=== PATIENT | male | born 1975 ===

== ENCOUNTER 2018-07-06 09:37 | Outpatient (RCR) | payer MEDICARE ==
[~2018-07-06 09:37] MED LIST: CETI10CA8 PO; CITA-145 PO; DIPH-740 PO; IBUP600T22 PO; OMEP40CA48 PO; TRAM-420 PO; ZOLP-350 PO
== END 2018-10-04 ==
LOC: SPU 09:37
PROVIDERS: ATTEND Nurse Practitioner Family
DX: Z13.220 Encounter for screening for lipoid disorders (principal); C79.51 Secondary malignant neoplasm of bone; E55.9 Vitamin D deficiency, unspecified; E03.9 Hypothyroidism, unspecified
CPT/HCPCS: 82306; 82465; 83718; 84443; 84478

== ENCOUNTER 2018-07-06 10:00 | Outpatient (RCR) | payer MEDICARE ==
[2018-04-09 09:13] VITALS: BP 131/88
[2018-04-09 09:55] LABS: PLATELET COUNT, AUTOMATED 316 K/uL (150-450)
--- NOTE | 2018-04-09 11:32 | ONCOLOGY CONSULTATION ---
EVENT DATE: April 09, 2018 REASON FOR CONSULTATION Establishment of care for a patient with metastatic carcinoid tumor. 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 His oncology history dated back to 1987 at the age of 12, when he was diagnosed with carcinoid tumor of his right lung. He underwent right pneumonectomy and subsequently developed metastatic disease involving his liver and bones. In 1995, he was treated with 5-FU and streptozocin but he did not have much of a response to the chemotherapy and apparently did not tolerate it well. He had metastasis to the right and left orbits and he received 4000 cGy of radiation therapy in 1999. In 2007, he had surgical resection of metastasis in the suprasellar region of the brain. He had also surgical removal of multiple painful subcutaneous nodules involving his back and face. In December 2011, he began monthly injections of Sandostatin LAR. Since starting the Sandostatin LAR, his chromogranin A levels decreased from the range of 250 down to the 20-50 range and his symptoms of carcinoid syndrome including diarrhea and flushing also improved. Patient moved to [place], [place] a few weeks ago and he would like to establish care. PAST MEDICAL HISTORY Metastatic carcinoid tumor diagnosed in 1987 at age of 12 years. PAST SURGICAL HISTORY Surgical resection of tumors from the lung. He had the pneumonectomy in 1987 and also from subcutaneous tissues and from the suprasellar region of the brain in 2007. FAMILY HISTORY Negative for cancer or blood diseases. SOCIAL HISTORY Patient is with four children. CURRENT MEDICATION 1. Sandostatin LAR every month. 2. Benadryl 25 mg p.r.n. 3. Ibuprofen 600 mg as needed. 4. Tramadol 50 mg as needed. 5. Ambien 10 mg at bedtime. 6. Omeprazole 40 mg daily. 7. Citalopram 20 mg daily. 8. Cetirizine 10 mg daily. ALLERGIES AUGMENTIN, which causes itching. METOCLOPRAMIDE, which causes skin rash. REVIEW OF SYSTEMS CONSTITUTIONAL: Patient has loss of appetite. HEENT: Ears: No tinnitus or hearing problem. Nose: No nasal discharge or epistaxis. Throat: No sore throat or mouth ulcers. Eyes: No diplopia or visual changes. RESPIRATORY: He has cough with expectoration, shortness of breath and wheezing. CARDIOVASCULAR: No chest pain, orthopnea, or paroxysmal nocturnal dyspnea (PND). No edema. No palpitations. GASTROINTESTINAL: No nausea or vomiting. No diarrhea or constipation. No change in bowel movements. No heartburn or swallowing difficulties. No abdominal pain. No jaundice. No hematemesis, melena or rectal bleeding. GENITOURINARY: No dysuria or hematuria MUSCULOSKELETAL: No pain in the muscles, joints or bones. NEUROLOGICAL: He has occasional headache. HEMATOLOGIC/LYMPHATIC: He is weak, tired and fatigued, maybe from the stress of moving to a new area. SKIN: No skin rash or lumps. PSYCHIATRIC: No anxiety or depression. PHYSICAL EXAMINATION GENERAL: Looks stable. Well-developed, well-nourished, and in no acute distress. VITAL SIGNS: Blood pressure 131/88, pulse 81 per minute, respirations 16 per minute, temperature 97, pulse ox 95% on room air. HEENT: Head: Atraumatic. No sinus tenderness to palpation. Eyes: No icterus or conjunctivitis. Mouth and Throat: No oral thrush or mucositis. NECK: Supple. No cervical or supraclavicular lymphadenopathy. LUNGS: Clear to auscultation and percussion bilaterally. HEART: Regular rate and rhythm. No gallops, murmurs, clicks or rubs. ABDOMEN: Soft and lax. No tenderness. No hepatosplenomegaly. No masses. EXTREMITIES: No cyanosis, clubbing or edema. LYMPHATICS: No peripheral lymphadenopathy. NEUROLOGICAL: Conscious, alert and oriented x3. No focal motor or sensory deficits. PSYCHIATRIC: Mood and affect appear normal. SKIN: No skin rash, bruise or purpuric eruption. ASSESSMENT Indolent widely metastatic pulmonary carcinoid involving liver, bones, lungs, brain, eyes as well as history of multiple subcutaneous nodules, status post resections. His diagnosis dated back in 1987 at the age of 12 years when he had a pneumonectomy at that time. His disease was under control with Sandostatin LAR started in December 2011. I am planning to check his CBC, chem panel, chromogranin A and CEA today. I am planning also to monitor his tumor markers after that. I will start treatment with Sandostatin LAR once we get the authorization from his insurance. I will see him again in a month from now with CBC, chem panel, CEA and chromogranin A. His general condition is really very good currently. PLAN 1. Sandostatin LAR 20 mg intramuscularly. 2. Check CBC, chem panel, chromogranin A and CEA today. 3. Patient to return in one month with CBC, chem panel, CEA and chromogranin A. 4. Patient to contact us for any new concerns or complaints. JESUS
[2018-04-16 08:32] VITALS: BP 123/91
[2018-05-11 08:27] VITALS: BP 108/74
[2018-05-11 08:31] LABS: PLATELET COUNT, AUTOMATED 263 K/uL (150-450)
[2018-05-14 08:20] VITALS: BP 122/84
--- NOTE | 2018-05-14 10:17 | ONCOLOGY FOLLOW UP NOTE ---
EVENT DATE: May 14, 2018 DIAGNOSIS Metastatic carcinoid pulmonary tumor with metastasis to the liver, bones, lungs, brain, eyes and subcutaneous involvement. CHIEF COMPLAINT Patient is here today for followup of his metastatic carcinoid tumor. 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 His oncology history dated back to 1987 at the age of 12, when he was diagnosed with carcinoid tumor of his right lung. He underwent right pneumonectomy and subsequently developed metastatic disease involving his liver and bones. In 1995, he was treated with 5-FU and streptozocin but he did not have much of a response to the chemotherapy and apparently did not tolerate it well. He had metastasis to the right and left orbits and he received 4000 cGy of radiation therapy in 1999. In 2007, he had surgical resection of metastasis in the suprasellar region of the brain. He had also surgical removal of multiple painful subcutaneous nodules involving his back and face. In December 2011, he began monthly injections of Sandostatin LAR. Since starting the Sandostatin LAR, his chromogranin A levels decreased from the range of 250 down to the 20-50 range and his symptoms of carcinoid syndrome including diarrhea and flushing also improved. Patient moved to [place], [place] a few weeks ago and he would like to establish care. HISTORY OF PRESENT ILLNESS Patient is here today for followup of his metastatic pulmonary carcinoid tumor. He is doing fine currently except for nasal discharge sometime and occasional headache. He had the stomach flu a week ago which resolved. He presented at that time with nausea, vomiting and diarrhea, which resolved. PAST MEDICAL HISTORY Metastatic carcinoid tumor diagnosed in 1987 at age of 12 years. PAST SURGICAL HISTORY Surgical resection of tumors from the lung. He had the pneumonectomy in 1987 and also from subcutaneous tissues and from the suprasellar region of the brain in 2007. FAMILY HISTORY Negative for cancer or blood diseases. SOCIAL HISTORY Patient is with four children. CURRENT MEDICATION 1. Sandostatin LAR every month. 2. Benadryl 25 mg p.r.n. 3. Ibuprofen 600 mg as needed. 4. Tramadol 50 mg as needed. 5. Ambien 10 mg at bedtime. 6. Omeprazole 40 mg daily. 7. Citalopram 20 mg daily. 8. Cetirizine 10 mg daily. ALLERGIES AUGMENTIN, which causes itching. METOCLOPRAMIDE, which causes skin rash. REVIEW OF SYSTEMS CONSTITUTIONAL: Patient has loss of appetite. HEENT: Ears: No tinnitus or hearing problem. Nose: He has nasal discharge. Throat: No sore throat or mouth ulcers. Eyes: No diplopia or visual changes. RESPIRATORY: He has cough with expectoration, shortness of breath and wheezing. CARDIOVASCULAR: No chest pain, orthopnea, or paroxysmal nocturnal dyspnea (PND). No edema. No palpitations. GASTROINTESTINAL: He has vomiting and diarrhea related to stomach flu last week, which recovered. GENITOURINARY: No dysuria or hematuria MUSCULOSKELETAL: No pain in the muscles, joints or bones. NEUROLOGICAL: He has occasional headache. HEMATOLOGIC/LYMPHATIC: He is weak, tired and fatigued, maybe from the stress of moving to a new area. SKIN: No skin rash or lumps. PSYCHIATRIC: No anxiety or depression. PHYSICAL EXAMINATION GENERAL: Looks stable. Well-developed, well-nourished, and in no acute distress. VITAL SIGNS: Blood pressure 122/84, pulse 78 per minute, respirations 16 per minute, temperature 96.9, pulse ox 93% on room air. HEENT: Head: Atraumatic. No sinus tenderness to palpation. Eyes: No icterus or conjunctivitis. Mouth and Throat: No oral thrush or mucositis. NECK: Supple. No cervical or supraclavicular lymphadenopathy. LUNGS: Clear to auscultation and percussion bilaterally. HEART: Regular rate and rhythm. No gallops, murmurs, clicks or rubs. ABDOMEN: Soft and lax. No tenderness. No hepatosplenomegaly. No masses. EXTREMITIES: No cyanosis, clubbing or edema. LYMPHATICS: No peripheral lymphadenopathy. NEUROLOGICAL: Conscious, alert and oriented x3. No focal motor or sensory deficits. PSYCHIATRIC: Mood and affect appear normal. SKIN: No skin rash, bruise or purpuric eruption. DIAGNOSTIC DATA CBC showed white count 5.1, hemoglobin 16.2, hematocrit 47.9, platelets 263,000. Chem panel totally normal except chloride 108, blood sugar 115, AST 50, ALT 57, alkaline phosphatase 277. CEA 1.8. Chromogranin was 36 and his level this visit is still pending. ASSESSMENT Indolent widely metastatic pulmonary carcinoid involving liver, bones, lungs, brain, eyes as well as history of multiple subcutaneous nodules, status post resection. His diagnosis dated back in 1987 at the age of 12 years when he had a pneumonectomy at that time. His disease was under control with Sandostatin LAR started in December 2011. His chromogranin A was 36 and the level this visit is still pending. CEA is normal at 1.8. He is really doing very well currently. I am planning to proceed with his Sandostatin LAR this visit and I will see him in a month with CBC, chem panel, chromogranin A and CEA. PLAN 1. Sandostatin LAR 20 mg intramuscularly. 2. Patient to return in one month with CBC, chem panel, CEA and chromogranin A. 3. Patient to contact us for any new concerns or complaints. [*] MTDD
[2018-06-08 08:31] VITALS: BP 126/98
[2018-06-08 08:46] LABS: PLATELET COUNT, AUTOMATED 271 K/uL (150-450)
--- NOTE | 2018-06-09 08:51 | NUR ---
SW visited with pt yesterday in regard to getting a referral for mental health medication management. SW referred pt to Roxann Vazquez at the [facility]. SW also questioned whether pt had a PCP, he was referred to Dony earlier, but DIONISIO also recommended Ai BURGOS at [facility] as she is well acquainted with PCP management with a cancer diagnosis.
[2018-06-12 08:19] VITALS: BP 123/81
--- NOTE | 2018-06-12 08:57 | NUR ---
DIONISIO met with pt again today while he was in seeing the physician. Pt was concerned about his medications. He stated he has been having a hard time sleeping, his eyes were noticably bloodshot and tired looking, and he says he usually takes a medication for that, but has not been able to access it because of the lack of medicaid coverage. He is in the process of applying for medicaid and it is likely he will qualify for the [employer] program which will reimburse his medicare premiums. DIONISIO suggested the pt to apply for the [place] medication [place] program for the medication he is needing, but he will have to first establish care with a primary physician to get the scripts to send to the program. Pt states he will be calling to establish care very soon.
--- NOTE | 2018-06-12 09:16 | [facility] ONCOLOGY NOTE ---
EVENT DATE: June 12, 2018 DIAGNOSIS Metastatic carcinoid pulmonary tumor with metastasis to the liver, bones, lungs, brain, eyes and subcutaneous involvement. CHIEF COMPLAINT Patient is here today for followup of his metastatic carcinoid tumor. 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 His oncology history dated back to 1987 at the age of 12, when he was diagnosed with carcinoid tumor of his right lung. He underwent right pneumonectomy and subsequently developed metastatic disease involving his liver and bones. In 1995, he was treated with 5-FU and streptozocin but he did not have much of a response to the chemotherapy and apparently did not tolerate it well. He had metastasis to the right and left orbits and he received 4000 cGy of radiation therapy in 1999. In 2007, he had surgical resection of metastasis in the suprasellar region of the brain. He had also surgical removal of multiple painful subcutaneous nodules involving his back and face. In December 2011, he began monthly injections of Sandostatin LAR. Since starting the Sandostatin LAR, his chromogranin A levels decreased from the range of 250 down to the 20-50 range and his symptoms of carcinoid syndrome including diarrhea and flushing also improved. Patient moved to [place], [place] a few weeks ago and he would like to establish care. HISTORY OF PRESENT ILLNESS Patient is here today for followup of his metastatic carcinoid tumor. He is doing fine currently. He has some occasional epistaxis. He has soreness in his muscle and he has some left lower rib cage tenderness. Other than that, he is really doing very well currently. PAST MEDICAL HISTORY Metastatic carcinoid tumor diagnosed in 1987 at age of 12 years. PAST SURGICAL HISTORY Surgical resection of tumors from the lung. He had the pneumonectomy in 1987 and also from subcutaneous tissues and from the suprasellar region of the brain in 2007. FAMILY HISTORY Negative for cancer or blood diseases. SOCIAL HISTORY Patient is with four children. CURRENT MEDICATION 1. Sandostatin LAR every month. 2. Benadryl 25 mg p.r.n. 3. Ibuprofen 600 mg as needed. 4. Tramadol 50 mg as needed. 5. Ambien 10 mg at bedtime. 6. Omeprazole 40 mg daily. 7. Citalopram 20 mg daily. 8. Cetirizine 10 mg daily. ALLERGIES AUGMENTIN, which causes itching. METOCLOPRAMIDE, which causes skin rash. REVIEW OF SYSTEMS CONSTITUTIONAL: Patient has loss of appetite. HEENT: Ears: No tinnitus or hearing problem. Nose: He has occasional epistaxis. Throat: No sore throat or mouth ulcers. Eyes: No diplopia or visual changes. RESPIRATORY: He has cough with expectoration, shortness of breath and wheezing. CARDIOVASCULAR: No chest pain, orthopnea, or paroxysmal nocturnal dyspnea (PND). No edema. No palpitations. GASTROINTESTINAL: He has vomiting and diarrhea related to stomach flu last week, which recovered. GENITOURINARY: No dysuria or hematuria MUSCULOSKELETAL: He has soreness in his muscles, especially left lower rib cage. NEUROLOGICAL: He has occasional headache. HEMATOLOGIC/LYMPHATIC: He is weak, tired and fatigued, maybe from the stress of moving to a new area. SKIN: No skin rash or lumps. PSYCHIATRIC: No anxiety or depression. PHYSICAL EXAMINATION GENERAL: Looks stable. Well-developed, well-nourished, and in no acute distress. VITAL SIGNS: Blood pressure 123/81, pulse 67 per minute, respirations 16 per minute, temperature 97.7, pulse ox 94% on room air. HEENT: Head: Atraumatic. No sinus tenderness to palpation. Eyes: No icterus or conjunctivitis. Mouth and Throat: No oral thrush or mucositis. NECK: Supple. No cervical or supraclavicular lymphadenopathy. LUNGS: Clear to auscultation and percussion bilaterally. HEART: Regular rate and rhythm. No gallops, murmurs, clicks or rubs. ABDOMEN: Soft and lax. No tenderness. No hepatosplenomegaly. No masses. EXTREMITIES: No cyanosis, clubbing or edema. LYMPHATICS: No peripheral lymphadenopathy. NEUROLOGICAL: Conscious, alert and oriented x3. No focal motor or sensory deficits. PSYCHIATRIC: Mood and affect appear normal. SKIN: No skin rash, bruise or purpuric eruption. DIAGNOSTIC DATA CBC showed white count 6.6, hemoglobin 17.2, hematocrit 51.3, platelets 271,000. Chem panel totally normal except chloride 109, carbon dioxide 21, blood sugar 142, AST 39, alkaline phosphatase 187. CEA is normal at 2.5 as well as chromogranin, which is normal at 43. 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 Diagnosis dated back at 1987 at the age of 12 years when he had a pneumonectomy at that time. His disease was under control with Sandostatin LAR started in December 2011. His chromogranin currently is normal at 43 and CEA is also normal at 2.5. I am planning to continue followup and I will see him again in a month with CBC, chem panel, CEA and chromogranin A. I will proceed with his Sandostatin LAR 20 mg intramuscularly today. PLAN 1. Sandostatin LAR 20 mg intramuscularly. 2. Patient to return in one month with CBC, chem panel, CEA and chromogranin A. 3. Patient to contact us for any new concerns or complaints. MTDD
[~2018-07-06] VITALS: Ht 168 cm; Wt 75.1 kg
[~2018-07-06 10:00] MED LIST changes: +[UNRECOGNIZED DRUG - OTHER] IM ONLY ONE
[2018-07-06 10:06] VITALS: BP 127/87
[2018-07-06 10:35] LABS: PLATELET COUNT, AUTOMATED 297 K/uL (150-450)
== END 2018-07-08 ==
LOC: SPU 10:00
PROVIDERS: ATTEND Internal Medicine Hematology
DX: C7A.090 Malignant carcinoid tumor of the bronchus and lung (principal); C78.7 Secondary malignant neoplasm of liver and intrahepatic bile duct; C79.31 Secondary malignant neoplasm of brain; C79.49 Secondary malignant neoplasm of other parts of nervous system; Z92.21 Personal history of antineoplastic chemotherapy; Z79.899 Other long term (current) drug therapy; R53.1 Weakness; R53.83 Other fatigue; R05 Cough; R06.02 Shortness of breath; R06.2 Wheezing
CPT/HCPCS: 36415; 82378; 85025; 86316; 96372; G0463; J2353; 82040; 82247; 82310; 82374; 82435; 82565; 82947; 84075; 84132; 84155; 84295; 84450; 84460; 84520; 99202; 99212

== ENCOUNTER 2018-09-04 12:15 | Outpatient (RCR) | payer MEDICARE ==
[2018-07-09 08:56] VITALS: BP 126/81
--- NOTE | 2018-07-09 10:22 | [facility] ONCOLOGY NOTE ---
EVENT DATE: July 09, 2018 DIAGNOSIS Metastatic carcinoid pulmonary tumor with metastasis to the liver, bones, lungs, brain, eyes and subcutaneous involvement. CHIEF COMPLAINT Patient is here today for followup of his metastatic carcinoid tumor. 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 His oncology history dated back to 1987 at the age of 12, when he was diagnosed with carcinoid tumor of his right lung. He underwent right pneumonectomy and subsequently developed metastatic disease involving his liver and bones. In 1995, he was treated with 5-FU and streptozocin but he did not have much of a response to the chemotherapy and apparently did not tolerate it well. He had metastasis to the right and left orbits and he received 4000 cGy of radiation therapy in 1999. In 2007, he had surgical resection of metastasis in the suprasellar region of the brain. He had also surgical removal of multiple painful subcutaneous nodules involving his back and face. In December 2011, he began monthly injections of Sandostatin LAR. Since starting the Sandostatin LAR, his chromogranin A levels decreased from the range of 250 down to the 20-50 range and his symptoms of carcinoid syndrome including diarrhea and flushing also improved. Patient moved to [place], [place] a few weeks ago and he would like to establish care. HISTORY OF PRESENT ILLNESS Patient is here today for followup of his metastatic carcinoid tumor. He is doing fine currently except for occasional headache. He has occasional insomnia but other than that his general condition really is very good. PAST MEDICAL HISTORY Metastatic carcinoid tumor diagnosed in 1987 at age of 12 years. PAST SURGICAL HISTORY Surgical resection of tumors from the lung. He had the pneumonectomy in 1987 and also from subcutaneous tissues and from the suprasellar region of the brain in 2007. SOCIAL HISTORY Patient is with four children. FAMILY HISTORY Negative for cancer or blood diseases. CURRENT MEDICATION 1. Sandostatin LAR every month. 2. Benadryl 25 mg p.r.n. 3. Ibuprofen 600 mg as needed. 4. Tramadol 50 mg as needed. 5. Ambien 10 mg at bedtime. 6. Omeprazole 40 mg daily. 7. Citalopram 20 mg daily. 8. Cetirizine 10 mg daily. ALLERGIES AUGMENTIN, which causes itching. METOCLOPRAMIDE, which causes skin rash. REVIEW OF SYSTEMS CONSTITUTIONAL: Patient has loss of appetite. HEENT: Ears: No tinnitus or hearing problem. Nose: He has occasional epistaxis. Throat: No sore throat or mouth ulcers. Eyes: No diplopia or visual changes. RESPIRATORY: He has cough with expectoration, shortness of breath and wheezing. CARDIOVASCULAR: No chest pain, orthopnea, or paroxysmal nocturnal dyspnea (PND). No edema. No palpitations. GASTROINTESTINAL: He has vomiting and diarrhea related to stomach flu last week, which recovered. GENITOURINARY: No dysuria or hematuria MUSCULOSKELETAL: He has soreness in his muscles, especially left lower rib cage. NEUROLOGICAL: He has occasional headache and insomnia. HEMATOLOGIC/LYMPHATIC: He is weak, tired and fatigued, maybe from the stress of moving to a new area. SKIN: No skin rash or lumps. PSYCHIATRIC: No anxiety or depression. PHYSICAL EXAMINATION GENERAL: Looks stable. Well-developed, well-nourished, and in no acute distress. VITAL SIGNS: Blood pressure 126/81, pulse 74 per minute, respirations 16 per minute, temperature 97.1, pulse ox 94% on room air. HEENT: Head: Atraumatic. No sinus tenderness to palpation. Eyes: No icterus or conjunctivitis. Mouth and Throat: No oral thrush or mucositis. NECK: Supple. No cervical or supraclavicular lymphadenopathy. LUNGS: Clear to auscultation and percussion bilaterally. HEART: Regular rate and rhythm. No gallops, murmurs, clicks or rubs. ABDOMEN: Soft and lax. No tenderness. No hepatosplenomegaly. No masses. EXTREMITIES: No cyanosis, clubbing or edema. LYMPHATICS: No peripheral lymphadenopathy. NEUROLOGICAL: Conscious, alert and oriented x3. No focal motor or sensory deficits. PSYCHIATRIC: Mood and affect appear normal. SKIN: No skin rash, bruise or purpuric eruption. DIAGNOSTIC DATA CBC showed white count 5.7, hemoglobin 17.1, hematocrit 50.4, platelets 297,000. Chem panel totally normal except AST 45, alkaline phosphatase 181. CEA is 2 and chromogranin A is 29, both within the normal range. 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 Diagnosis dated back at 1987 at the age of 12 years when he had a pneumonectomy at that time. His disease was under control currently with Sandostatin LAR started December 2011. His chromogranin A currently is normal at 29 and his CEA is also normal at 2. Patient is doing very well. He has no symptoms of carcinoid syndrome. I am planning to continue followup. I will see him again in one month with CBC, chem panel, chromogranin A and I will proceed with his Sandostatin LAR today. PLAN 1. Sandostatin LAR 20 mg intramuscularly today. 2. Patient to return in one month with CBC, chem panel, CEA and chromogranin A. 3. Patient to contact us for any new concerns or complaints. [facility]
[2018-08-03 08:39] VITALS: BP 122/85
[2018-08-03 08:50] LABS: PLATELET COUNT, AUTOMATED 292 K/uL (150-450)
[2018-08-07 15:43] VITALS: BP 132/87
--- NOTE | 2018-08-07 20:49 | ONCOLOGY FOLLOW UP NOTE ---
EVENT DATE: August 07, 2018 CHIEF COMPLAINT Followup for metastatic carcinoid tumor. HISTORY OF PRESENT ILLNESS Patient is a 43-year-old male who was seen today in monthly followup. He will receive Sandostatin LAR today. He has been tolerating this well. He denies any significant diarrhea or flushing. He and his moved to [place] from [place] and are happy with this change. His only issue is that of some insomnia, but he finds he is able to control this with occasional Ambien 5 mg. He has lost weight since moving here, but both he and his feel this has been purposeful. 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 He was diagnosed at age 12 in 1987 with a carcinoid tumor in his right lung, underwent right pneumonectomy, but then developed metastatic disease involving the liver and bones. In 1995, he was treated with 5-FU and Streptozocin, but had a poor response to treatment. Underwent radiation to the right and left orbits in 1999. In 2007, he underwent surgical resection of metastases in the suprasellar region of the brain as well as surgical removal of multiple painful subcutaneous nodules on his back and face. In December 2011, he began monthly injections of Sandostatin LAR, and disease has been well controlled since that time. MEDICAL HISTORY Metastatic carcinoid tumor, diagnosed in 1987 at age 12. SOCIAL HISTORY 1. Right pneumonectomy, 1987. 2. Surgical resection of metastases in the suprasellar region of the brain, 2007. 3. Surgical removal of multiple painful subcutaneous nodules. FAMILY HISTORY Negative for malignancy or blood disorders. SOCIAL HISTORY Patient is . He has four grown children, two of whom live at home. He is not working. He does not smoke. MEDICATIONS 1. Benadryl p.r.n. 2. Ibuprofen p.r.n. 3. Tramadol 50 mg p.r.n. 4. Ambien 5 to 10 mg p.r.n. 5. Omeprazole 40 mg daily. 6. Citalopram 20 mg daily. 7. Cetirizine 10 mg daily. ALLERGIES AUGMENTIN which causes itching. METOCLOPRAMIDE which causes skin rash. REVIEW OF SYSTEMS A 12-point review of systems is performed and is negative except as stated above. PHYSICAL EXAMINATION VITAL SIGNS: Blood pressure 122/85, pulse 60, respirations 16, temp 97.5, O2 sat 95%. GENERAL: Patient is a well-developed, well-nourished male in no acute distress. HEAD: Normocephalic, atraumatic. EYES: Sclerae anicteric. MOUTH: No mucositis. Moist mucous membranes. NECK: Supple. No palpable adenopathy. LUNGS: Clear bilaterally. CARDIOVASCULAR: Heart rate regular, 60 per minute. EXTREMITIES: No edema. NEUROLOGIC: Nonfocal. SKIN: No subcutaneous nodules noted. He does have sequelae of mosquito bites on both arms. LABORATORIES CBC on 08/03/18 showed a WBC of 5.1, hemoglobin 17.0, hematocrit 50.2, platelets 292,000. CMP is within normal limits except for a mildly elevated AST of 40 and alkaline phosphatase of 177. CEA 2.4. Chromogranin A 28. 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 Underwent a right pneumonectomy at that time. Received radiation to the right and left orbits in 1999. In 2007, underwent surgical resection of metastases in the suprasellar region of the brain with removal of multiple painful subcutaneous nodules on his back and face. Began Sandostatin LAR in 2011. Disease has been quiescent since that time. PLAN 1. Metastatic pulmonary carcinoid tumor. Sandostatin LAR 20 mg IM today and monthly. He tolerates this well. He denies excessive flushing or diarrhea. 2. Weight loss. Patient has lost weight since moving to [place]. However, both he and his state this has been purposeful. He feels well. 3. Low vitamin D. Vitamin D was 20. He began vitamin D3 5000 International Units daily along with calcium. 4. Follow up monthly for Sandostatin LAR. CBC, CMP, CEA, and chromogranin A will be drawn at that time. 5. Follow up with Dr. Corrigan in three months for continued care, earlier if there is a problem. [facility]
[2018-09-04 12:33] VITALS: BP 128/90
[2018-09-04] MEDS ORDERED: [UNRECOGNIZED DRUG - OTHER] IM ONLY ONE (12:45)
[2018-09-04 13:03] LABS: PLATELET COUNT, AUTOMATED 285 K/uL (150-450)
== END 2018-10-07 ==
LOC: SPU 12:15
PROVIDERS: ATTEND Internal Medicine Hematology
DX: C7A.090 Malignant carcinoid tumor of the bronchus and lung (principal); C78.7 Secondary malignant neoplasm of liver and intrahepatic bile duct; C79.31 Secondary malignant neoplasm of brain; C79.49 Secondary malignant neoplasm of other parts of nervous system; Z92.21 Personal history of antineoplastic chemotherapy; Z79.899 Other long term (current) drug therapy; R53.1 Weakness; R53.83 Other fatigue; R05 Cough; R06.02 Shortness of breath; R06.2 Wheezing
CPT/HCPCS: 36415; 82378; 85025; 86316; 96372; G0463; J2353; 82040; 82247; 82310; 82374; 82435; 82565; 82947; 84075; 84132; 84155; 84295; 84450; 84460; 84520; 99212